=== PATIENT | female | born 1980 | race Two or more races ===

== ENCOUNTER 2017-11-07 13:13 | Emergency (ER) | payer OTHER, MEDICAID ==
[2017-11-07 13:22] VITALS: BP 126/74; PULSE 89; RESP 18; TEMP 98.5; O2SAT 97
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
== END 2017-11-07 15:35 | disposition home or self-care (01) ==
LOC: H.ER 13:13
DX: S70.11XA Contusion of right thigh, initial encounter (principal); V43.52XA Car driver injured in collision with other type car in traffic accident, initial encounter; Y92.410 Unspecified street and highway as the place of occurrence of the external cause